=== PATIENT | male | born 1980 | race African-American/Black ===

== ENCOUNTER 2022-03-14 09:32 | Emergency (ER) | payer SELFPAY ==
[~2022-03-14] VITALS: Ht 177.8 cm; Wt 104.3 kg
[2022-03-14 09:35] VITALS: BP 167/114
--- NOTE | 2022-03-14 09:43 | NUR ---
PT AMBULATED TO ER BED 11 WITH A STEADY GAIT.
--- NOTE | 2022-03-14 09:52 | NUR ---
41 Y/O MALE C/O HEADACHE / DESCRIBES ACHING X2DAYS S/P EXERCISING. PT STATES HIGH BP 201/139 TODAY. DENIES HEADACHE OR DIZZINESS AT THIS TIME. DENIES FEVER/CHILLS. DENIES N/V/D. PMH: HTN NKA
--- NOTE | 2022-03-14 10:40 | NUR ---
DR. EDWARD AT PT BEDSIDE FOR FURTHER EVALUATION.
[2022-03-14] MEDS ORDERED: LISI40TA12 PO (10:46)
[2022-03-14 10:52] VITALS: BP 142/92
--- NOTE | 2022-03-14 10:53 | NUR ---
Patient discharged with v/s stable. Written and verbal after care instructions given FOR HYPERTENSION and explained. Patient alert, oriented and verbalized understanding of instructions. Ambulatory with steady gait. All questions addressed prior to discharge. ID band removed. Patient advised to follow up with PMD. Rx of LISINOPRIL given. Patient educated on indication of medication including possible reaction and side effects. Opportunity to ask questions provided and answered.
== END 2022-03-14 10:53 | disposition home or self-care (01) ==
LOC: MED 09:32
DX: I10 Essential (primary) hypertension (principal); Z98.890 Other specified postprocedural states
CPT/HCPCS: 81002; 99283

== ENCOUNTER 2024-04-02 08:58 | Emergency (ER) | payer SELFPAY ==
[~2024-04-02] VITALS: Ht 177.8 cm; Wt 107.6 kg
[~2024-04-02 08:58] MED LIST: LISI40TA12 PO
[2024-04-02 09:00] VITALS: BP 159/103; PULSE 73; RESP 18; TEMP 98; O2SAT 98
[2024-04-02] MEDS: LIDOCAINE/EPI 1% 1:100000 20 ML VIAL INJ ONE (09:24)
[2024-04-02] MEDS ORDERED: NAPR-337 PO (09:57)
[2024-04-02] MEDS ORDERED: LISI40TA12 PO (09:57)
[2024-04-02] MEDS ORDERED: CEPH-588 PO (09:57)
[2024-04-02 10:03] VITALS: BP 150/96; PULSE 70; RESP 18; TEMP 98; O2SAT 97
== END 2024-04-02 10:03 | disposition home or self-care (01) ==
LOC: MED 08:58
DX: L02.31 Cutaneous abscess of buttock (principal); I10 Essential (primary) hypertension; Z79.899 Other long term (current) drug therapy
CPT/HCPCS: 10060; 99283; J2001